=== PATIENT | male | born 1945 | race Caucasian/White ===

== ENCOUNTER 2017-01-03 08:52 | Day surgery (SDC) | payer OTHER ==
[2017-01-03] VITALS (11 sets, daily range): BP systolic 91–156; BP diastolic 45–64; PULSE 44–64; RESP 9–17; O2SAT 95–100
[~2017-01-03] VITALS: Ht 175.3 cm; Wt 110.7 kg
--- NOTE | 2017-01-03 06:38 | PCM.HPANE ---
Patient Data Surgeon Admitting Provider: Attending Provider:Precious Mendosa MD Primary Care Physician: Other Provider:Saqib Jimenez Anesthesia Reason for Visit Right Kidney Stone Ht/WT & BMI Height (Feet): 5 Height (Inches): 9 Weight (Kilograms): 110.68 Body Mass Index 36.00 Allergies Coded Allergies: No Known Allergies (Unverified , 12/31/16) Past Anesthesia History Anesthesia History: Denies:: Abnormal Airway, Anesthesia Reactions, Difficult Intubation, Fam Anesthesia Reaction, Fam Malignant Hypertherm, Malignant Hyperthermia Diabetes History Hx Diabetes?: No MRSA MRSA: No Medications Blood Thinner: Coumadin, Plavix Hypertension Medication: Yes Home Meds Incl Beta Andi: Yes Reported Medications Warfarin Sodium (Coumadin)7.5 Mg Tablet7.5 Mg PO DAILY 30 Days Ref 0 12/31/16 Clopidogrel Bisulfate (Plavix)75 Mg Xbwuyv22 Mg PO DAILY 30 Days Ref 0 12/31/16 Nitroglycerin SL 0.4 Mg Tab.subl0.4 Mg SL PRN For Chest Pain 12/31/16 Metoprolol Succinate ER 50 Mg Tab.er.24h50 Mg PO DAILY Ref 0 12/31/16 Losartan Potassium 25 Mg Ynraxb15 Mg PO DAILY 12/31/16 Gluc/Dereck-MSM#2/C/D3/Nathanael/Born (Crqwlqjnst-Mdrdcbwxyqk-ISU Tab)1 Each Tablet1 Each PO DAILY 12/31/16 Atorvastatin (Lipitor)40 Mg Ipffim37 Mg PO DAILY Ref 0 12/31/16 Discontinued Reported Medications Hydrochlorothiazide 12.5 Mg Uqispc66.5 Mg PO DAILY 30 Days Ref 0 12/31/16 History HEENT History: Positive for:: Hearing Problem Denies:: Abnormal Airway Cataracts Difficult Intubation Dysphagia Glaucoma Sinus Problem TMJ Denture Type: Partial- Upper Hx of Heart Problems?: Yes Cardiovascular History: Positive for:: Atrial Fibrillation (on anticoag, cardioversion 2015) Cardiac Surgery (January 2016- stent, ) Hypertension Denies:: AICD Chest Pain Coronary Artery Disease Heart Murmur Irregular Heartbeat Pacemaker Peripheral Vascular Hx of Respiratory Problem?: No Respiratory History: Denies:: Asthma COPD Dyspnea Emphysema Hemoptysis Pneumonia Tuberculosis Use of C-PAP Machine (snores- does not obstruct per pt) Hx Neurologic Problems?: No Neurological History: Denies:: CVA Dizziness Headaches Multiple Sclerosis Parkinson's Disease Seizures TIA Hx of GI Problems?: Yes Gastrointestinal History: Denies:: Cirrhosis Gall Bladder Disease Gastroesphageal Reflux Gastrointestinal Bleeding Heartburn Hepatitis Hiatal Hernia Liver Disease Rectal Bleeding Hx of Problems?: Yes Genitourinary History: Positive for:: Kidney Stones (right current admission problem) Denies:: Urinary Tract Infection Other Pertinent History: hx of open left nephrolithotomy for stones Male Hx: Denies:: Prostate Problems Skin History: Denies:: History Skin Disorders? Pressure Ulcers Hx Musculoskeletal Problems?: Yes Musculoskeletal History: Denies:: Back Injury Fibromyalgia Joint Replacement Musculoskeletal Trauma Myasthenia Gravis Osteoarthritis Rheumatoid Arthritis Systemic Lupus Hx of Psycho/Social Problems?: No Psycho Social History: Denies:: Anxiety Hx Depression Hx Surgeries?: Yes (rotator cuff release, left open nephrolithotomy) Hx Any Other Health Problems?: Yes Other History: Denies:: Cancer Thyroid Disease History Blood Transfusions: Positive for:: Accept Blood Products? Denies:: Blood Transfusions Hx Diabetes: No Hx Alcohol Use: NoHx Substance Use: NoHave You Smoked inLast 12 mo: No Stop/Bang S-Snoring: Do You Snore Loudly: Yes T-Tired: feel tired, fatigued: No O-Obsered: Observed not breath: No P-Blood Pressure: treated: Yes B- Body Mass Index > 35 kg/m2: Yes A- Age over 50: Yes N- Neck Large Circumference: No G- Gender Male: Yes ROWAN Total Score: 5 Risk Assessment Category Category 1A: Patient has history of documented sleep apnea, and HAS NOT received any narcotic, sedative or anesthesia administration during this stay. Category 1B: Patient has history of documented sleep apnea, and HAS received any narcotic , sedative or anesthesia administration during this stay Category 2: Patient has SUSPECTED Obstructive Sleep Apnea, and HAS received any narcotic , sedative or anesthesia administration during this stay. Category 3: Patient has SUSPECTED Obstructive Sleep Apnea and HAS NOT received narcotic, sedative or anesthesia administration during this stay. Category 4: Outpatient in Procedural Areas with known sleep apnea or who screen positive for High Risk via the STOP/BANG questionnaire. Exam Exam General Appearance: Alert, Oriented X3, Cooperative HEENT/AIRWAY: MP 2, Neck Movement (FROM, Jacobson), Mouth Opening (wnl) Lungs: Clear to Auscultation Heart: Exam Unremarkable Plan Impression Patient chart reviewed, patient interviewed and anesthestic plan with risks, benefits, and alternatives discussed, and informed consent obtained. ASA Physical Status: ASA2 Mod Systemic Disease Anesthetic Plan: GA Bene/Risks/Altern/Consents: Yes HP Complete Prior to Induction: Yes Omar Byrd MD Jan 03, 2017 06:38
[~2017-01-03 08:52] MED LIST: CLOP75TA3 PO; CeFAZolin Inj 2 GM in IV Premix 1 EACH IV ONE; GLUC-123 PO; HYDR12.55 PO; LIP40 PO; LOSA25TA21 PO; Lactated Ringer's 1,000 ML IV ONE; METO-272 PO; NITR0.4T6 SL; WARF7.5T PO
[2017-01-03] MEDS ORDERED: Rocuronium 10 mg/mL 5 mL Inj ONE (08:53)
[2017-01-03] MEDS ORDERED: Neostigmine 1 mg/mL 5 mL Inj ONE (08:53)
[2017-01-03] MEDS ORDERED: Ondansetron 2 mg/mL 2 mL Inj ONE (08:53)
[2017-01-03] MEDS ORDERED: fentaNYL-PF 50 mCg/mL 2 mL Inj ONE (08:53)
[2017-01-03] MEDS ORDERED: Glycopyrrolate 0.2 mg/mL 5 mL Inj ONE (08:53)
[2017-01-03] MEDS ORDERED: Propofol 10,000 mCg/mL 20 mL Inj ONE (08:53)
[2017-01-03] MEDS ORDERED: Lactated Ringer's 1,000 ML IV ONE (09:24)
[2017-01-03 10:27] LABS: INR 1.05 ratio
[2017-01-03] MEDS ORDERED: Lactated Ringer's 500 ML IV PRN (14:12)
[2017-01-03] MEDS ORDERED: Lactated Ringer's 1,000 ML IV SCH (14:12)
[2017-01-03] MEDS ORDERED: hydrALAZINE 20 mg/mL Inj IVPUSH PRN (14:15)
[2017-01-03] MEDS ORDERED: HYDROmorphone 1 mg/mL Inj IVPUSH PRN (14:15)
[2017-01-03] MEDS ORDERED: Labetalol 5 mg/mL 4 mL Inj IV PRN (14:15)
[2017-01-03] MEDS ORDERED: Phenylephrine 10,000 mCg/mL Inj IVPUSH PRN (14:15)
[2017-01-03] MEDS ORDERED: Dexamethasone 4 mg/mL Inj IVPUSH PRN (14:15)
[2017-01-03] MEDS ORDERED: Atropine 0.4 mg/mL Inj IVPUSH PRN (14:15)
[2017-01-03] MEDS ORDERED: Ondansetron 2 mg/mL 2 mL Inj IVPUSH PRN (14:15)
[2017-01-03] MEDS ORDERED: fentaNYL-PF 50 mCg/mL 2 mL Inj IVPUSH PRN (14:15)
[2017-01-03] MEDS ORDERED: EPHEDrine Sulfate 50 mg/mL Inj IVPUSH PRN (14:15)
--- NOTE | 2017-01-03 15:15 | PCM.ANEP1 ---
Post Anesthesia Phase 1 PACU Phase 1 Assessment Vital Signs Vital Signs Date Time Temp Pulse Resp B/P Pulse Ox O2 Delivery O2 Flow Rate FiO2 01/03/17 15:09 48 10 122/51 95 Room Air 01/03/17 15:04 36.9 50 16 127/47 96 Room Air 01/03/17 14:59 54 9 128/54 96 Room Air 01/03/17 14:55 59 17 133/59 98 Room Air 01/03/17 14:50 36.3 64 12 153/64 96 Room Air 01/03/17 09:25 36.3 56 17 149/63 99 Room Air Anesthetic Administered: GA Level of Alertness: Awake, talking DAMON's with Equal Strength: Yes Pain: No Nausea or Vomiting: No Oxygen Delivery: Room Air Lungs: Normal Air Movement Omar Byrd MD Jan 03, 2017 15:15
[2017-01-03] MEDS: HYDROcodone-APAP 5-325 mg Tablet PO PRN ×3 (15:21→19:21)
--- NOTE | 2017-01-03 15:23 | DRSVH ---
PROCEDURE: X-RAY RETROGRADE UROGRAPHY INDICATIONS: RIGHT STENT PLACEMENT. TECHNIQUE: 2 intra-operative images acquired by the Urology service. COMPARISON: [facility], [place], IVP (ABD & PEL WWO CONTRAST), 11/25/2016, 12:49. FINDINGS: Exam is limited to submitted images. Within these limits, there is opacification of the r ight renal collecting system which is grossly normal. No intraluminal filling defects are seen. Nor mal appearance and caliber of the proximal right ureter were visualized. Ureteral stent was placed. IMPRESSION: 1. Limited study demonstrating normal appearance of the right renal collecting system and proximal ri ght ureter were visualized. 2. Placement of ureteral stent. Dictated by: Quinn RAZA Interpreted: Jasmin Leija MD on 01/03/2017 at 15:21 Transcribed by: ISAIAS on 01/03/2017 at 15:23 Approved by: Jasmin Leija M.D. on 01/03/2017 at 16:43
--- NOTE | 2017-01-04 01:06 | OP ---
[address] [address] OPERATIVE REPORT PATIENT: ALPHONSO THACKER : 1945 MR#: [id number] ADMIT: 01/03/2017 JOB ID: [id number] DATE OF SURGERY: 01/03/2017 PREOPERATIVE DIAGNOSIS(ES): Kidney stones. POSTOPERATIVE DIAGNOSIS(ES): Kidney stones. PROCEDURE PERFORMED: 1. Cystoscopy with right retrograde pyelogram. 2. Right ureteroscopy, laser lithotripsy and stone basketing. 3. Right ureteral stent placement. SURGEON: Precious Mendosa MD PACKAGING TECH: None. FINDINGS: Multiple stones in the right kidney. ANESTHESIA: General. ESTIMATED BLOOD LOSS: Less than 2 mL. DRAINS: A 6 x 28 right double-J ureteral stent. COMPLICATIONS: None. CONDITION: Stable. INDICATION FOR PROCEDURE: The patient is a 71-year-old man with kidney stones. After weighing his options, he wished to move forward with ureteroscopy. DESCRIPTION OF PROCEDURE: After informed consent was obtained, the patient was taken to the operating room. A time-out was performed, identifying correct patient, surgical site, and procedure. General anesthesia was smoothly induced. He was given intravenous antibiotics just prior to the start of the procedure. His genitals were then prepped and draped in the usual sterile fashion. It was attempted to place a 22-[place] cystoscope through the urethra, though it was of small caliber. The urethral meatus was dilated from a 20-[place] to 28-[place] without any bleeding. The cystoscope was then replaced in the patient's urethra and advanced to the bladder. The bladder was drained. The right ureteral orifice was seen in orthotopic position. It was cannulated with a 5-[place] open-ended Pollack catheter. A retrograde pyelogram was performed. It appeared normal. Two Sensor tip wires were then placed in sequence into the renal pelvis as seen under fluoroscopy. A 12-14 access sheath, 28 cm long was then advanced over one of the wires to the mid ureter. Flexible ureteroscopy then commenced. It should be noted that the retrograde pyelogram was normal. Every calyx was inspected. There were multiple stones at the mid pole and lower pole. A 273-micron laser FiberWire was used to break the stones into small pieces. A 0-tip nitinol basket was used to basket some of the stone fragments but the rest were extremely small and not basketable. The ureteroscope was then brought down to the level of the access sheath. Both were brought down in tandem. The remainder of the ureter appeared entirely normal. The remaining Sensor tip wire was then backloaded in the cystoscope and a 6 x 28 double-J ureteral stent was loaded over it and advanced to the renal pelvis as seen under fluoroscopy. The wire was then removed, leaving a nice coil in the patient's bladder as seen under direct vision. The bladder was then drained. The patient is then reversed from general anesthesia and taken to the PACU in stable condition. [place]
--- NOTE | 2017-01-04 07:17 | PCM.ANEP2 ---
Post Anesthesia Evaluation ASA/CMS Post Anesthesia VS in Patient's Normal Range?: Yes Resp Stable; Airway Patent?: Yes CV Function & Hydration Stable: Yes Mental Status Recovered?: Yes Pain control Satisfactory?: Yes N/V Control Satisfactory?: Yes Omar Byrd MD Jan 04, 2017 07:17
[2017-01-10 13:08] LABS: Stone Color Orange (.)
== END 2017-01-03 23:59 | disposition home or self-care (01) ==
LOC: SAS 08:52
PROVIDERS: ATTEND Urology
DX: N20.0 Calculus of kidney (principal); I48.92 Unspecified atrial flutter; I25.10 Atherosclerotic heart disease of native coronary artery without angina pectoris; I10 Essential (primary) hypertension; E78.5 Hyperlipidemia, unspecified; E66.9 Obesity, unspecified; Z87.891 Personal history of nicotine dependence; Z79.01 Long term (current) use of anticoagulants; Z79.02 Long term (current) use of antithrombotics/antiplatelets
CPT/HCPCS: 36415; 52356; 74420; 82360; 85610; C2617; J0690; J1170; J2405; J2710; J3010; J7120; Q9967